=== PATIENT | female | born 1970 | race Caucasian/White ===

== ENCOUNTER → 2020-07-02 11:19 | Outpatient (BNVA) | payer MEDICARE, MEDICAID, SELFPAY | PROVIDERS: PCP Family Medicine; Visit Provider Orthopaedic Surgery | DX: M17.11 Unilateral primary osteoarthritis, right knee (principal) | CPT/HCPCS: 99212 ==

== ENCOUNTER → 2020-10-28 09:43 | Outpatient (BNVA) | payer MEDICARE, MEDICAID, SELFPAY | PROVIDERS: Visit Provider Orthopaedic Surgery | DX: Z01.812 Encounter for preprocedural laboratory examination (principal); Z01.810 Encounter for preprocedural cardiovascular examination; M17.11 Unilateral primary osteoarthritis, right knee ==

== ENCOUNTER → 2020-11-25 09:31 | Outpatient (BNVA) | payer MEDICARE, MEDICAID, SELFPAY | PROVIDERS: PCP Pediatrics; Visit Provider Physician Assistant | DX: M17.11 Unilateral primary osteoarthritis, right knee (principal) | CPT/HCPCS: 99212 ==

== ENCOUNTER 2020-11-30 06:49 | Day surgery (SDC) | payer MEDICARE, MEDICAID, SELFPAY ==
--- NOTE | 2020-10-28 10:59 | ECG_ITS ---
Test Reason : PREOP Blood Pressure : / mmHG Vent. Rate : 080 BPM Atrial Rate : 080 BPM P-R Int : 106 ms QRS Dur : 082 ms QT Int : 370 ms P-R-T Axes : 048 061 024 degrees QTc Int : 426 ms Sinus rhythm with short [place] Nonspecific ST abnormality Borderline ECG No previous ECGs available Referred By: Holden Banks Electronically Signed By:ERIKA RETANA
[2020-10-28 11:30] LABS: MANUAL DIFF FLAG NO
[2020-10-28 11:50] LABS: Basophils Percent Auto 0.4 % (0-2); Eosinophils Absolute Auto 0.2 X10*3/uL (0.0-0.4); Eosinophils Percent Auto 1.5 % (0-4); Hematocrit 45.2 % (37-47); Imm Gran Abs Auto 0.04 X10*3/uL (0.00-0.03); Imm Gran Pct Auto 0.4 % (0.0-0.4); Lymphocytes Absolute Auto 2.4 X10*3/uL (1.2-4.9); Lymphocytes Percent Auto 22.3 % (20-40); Mean Corpuscular HGB Conc 33.2 g/dl (31.0-35.0); Mean Corpuscular Hemoglobin 29.9 pg (27.0-33.0); Mean Corpuscular Volume 90.2 fL (80-98); Monocytes Absolute Auto 0.4 X10*3/uL (0.1-1.2); Monocytes Percent Auto 3.3 % (2-11); Neutrophils Absolute Auto 7.8 X10*3/uL (2.0-8.3); Neutrophils Percent Auto 72.1 % (45-73); Platelet Count 251 X10*3/uL (160-400); Red Blood Count 5.01 X10*6/uL (4.20-5.50); Red Cell Distribution Width 12.5 % (11.0-16.0); White Blood Count 10.7 X10*3/uL (4.8-10.8)
[2020-10-28 12:20] LABS: Anion Gap 13 (12-20); Blood Urea Nitrogen 9 mg/dL (9-16); Carbon Dioxide 26 mmol/L (22-29); Chloride 107 mmol/L (96-108); Estimated Glomerular Filt Rate > 60; Glucose Random 91 mg/dL (60-115); Potassium 4.2 mmol/L (3.3-5.1); Sodium 142 mmol/L (135-145)
[2020-11-26 11:53] VITALS: BP 144/70; PULSE 75; RESP 20; O2SAT 98; BMI 32.5
--- NOTE | 2020-11-26 12:24 | HO.ANESPROP2 ---
Documented by User: Paige Latifney 11/29/20 12:05 HPI - Anesthesia Eval Consult details Narrative: 50yo F for Right Knee Replacement Total PCP cleared @ [facility] Does not tolerate masks r/t anxiety Large doses of Tylenol at home (2 grams QID). PCP aware per patient. Will obtain LFTS preop. PMFSH Active Problems Active Problems: All Active Problems (Updated 11/26/20 @ 12:09 by Paris Pena) Primary osteoarthritis of right knee (Acute) Past Medical History Medical History Acid reflux Arthritis Asthma Compartment syndrome COVID-19 vaccine administered History of postoperative nausea and vomiting Hypertension Osteoarthritis Post traumatic stress disorder Family History Family History Father No problems noted. Mother No problems noted. Family history of problems with anesthesia: No Surgical History Surgical History H/O colonoscopy History of arthroscopy of right knee (~2018) History of lumpectomy of left breast Hx of section Hx of fasciotomy Hx of hysterectomy Hx of knee surgery Hx of ovarian cystectomy Hx of surgical procedure History of Problems with Anesthesia: No Social History Social History Are you a primary primary health care nurse to a significant other at home: No Do you presently have visiting nurse or other home services: Yes (has [employer]) Patient Tobacco Use Status: Former Tobacco user Quit Date: 11/21/20 Tobacco use type: Cigarette Cigarettes Per Day: 14 Years Smoked: 20 Smoked in Last 30 Days: Yes Patient Interested in Nicotine Replacement: No Use of substances other than those prescribed or required for medical reasons: No Have you been hit, kicked, punched, or otherwise hurt by someone within the past year? If so, by whom?: No Are you DNR?: No Advance Directives: No Advance Directives Information Provided: No Advance Directives on File: No Recently lost weight without trying: No Eating poorly because of decreased appetite: No Nutrition Risks: No Nutritional Risk Patient : No FDLMP: N/A : No Poor oral hygiene: Yes (upper & lower partials) Narrative Narrative: No recent illness. >4 mets with walking/stairs Meds Allergies Allergy/AdvReac Type Severity Reaction Status Date / Time aspirin [ASPIRIN] Allergy Severe ASTHMATIC Verified 11/25/20 09:44 cefuroxime [From Ceftin] Allergy Intermediate red rash Verified 11/26/20 12:17 ibuprofen [From MOTRIN] Allergy Intermediate RASH Verified 11/25/20 09:44 Home Medications Medication Instructions Recorded Confirmed Last Taken Type amlodipine 10 mg tablet 10 mg PO DAILY 07/02/20 11/26/20 11/30/20 History lisinopril 10 mg tablet 10 mg PO BEDTIME 07/02/20 11/26/20 Unknown History omeprazole 20 mg capsule,delayed 20 mg PO BID 07/02/20 11/26/20 11/30/20 History release venlafaxine 75 mg capsule,extended 225 mg PO DAILY 07/02/20 11/26/20 11/30/20 History release 24 hr acetaminophen [Tylenol Extra 2,000 mg PO Q4H 11/26/20 11/26/20 Unknown History Strength] albuterol sulfate [Ventolin HFA] 2 puff INHALATION Q4-6H PRN 11/26/20 11/26/20 Unknown History multivitamin 1 tab PO DAILY 11/26/20 11/26/20 Unknown History Exam Exam Date and Time: November 26, 2020 1224 Height,Weight and Vital Signs: Height 5 ft 2 in Weight 80.739 kg Last Vital Signs Pulse 75 11/26/20 11:53 Resp 20 11/26/20 11:53 BP 144/70 H 11/26/20 11:53 Pulse Ox 98 11/26/20 11:53 Pertinent Lab Results Pertinent Lab Results: Laboratory Tests 10/28/20 10/28/20 11:05 11:05 WBC 10.7 RBC 5.01 Hgb 15.0 Hct 45.2 MCV 90.2 MCH 29.9 MCHC 33.2 RDW 12.5 Plt Count 251 MPV 11.0 Immature Gran % (Auto) 0.4 Neut % (Auto) 72.1 Lymph % (Auto) 22.3 [place] % (Auto) 3.3 Eos % (Auto) 1.5 Baso % (Auto) 0.4 Lymph # (Auto) 2.4 [place] # (Auto) 0.4 Eos # (Auto) 0.2 Baso # (Auto) 0.0 Abs Immat Gran (auto) 0.04 H Absolute Neuts (auto) 7.8 Absolute Nucleated RBC 0.000 Nucleated RBC % (auto) 0.0 Sodium 142 Potassium 4.2 Chloride 107 Carbon Dioxide 26 Anion Gap 13 BUN 9 Creatinine 0.76 Estim Creat Clear Calc TNP Estimated GFR > 60 Random Glucose 91 Calcium 10.0 Narrative Narrative: EKG 10/2020 Vent. Rate : 080 BPM Atrial Rate : 080 BPM P-R Int : 106 ms QRS Dur : 082 ms QT Int : 370 ms P-R-T Axes : 048 061 024 degrees QTc Int : 426 ms Sinus rhythm with short [place] Nonspecific ST abnormality Borderline ECG No previous ECGs available Airway Mallampati Class: I TM Dist: >3cm Neck ROM: Full Denture: Upper and Lower Heart: RRR Lungs: CTAB Assessment and Plan Assessment Anesthesia Assessment: Anesthesia Plan Discussed, Smoking Cess. Discussed and PAT Visit Documented by User: Patsy Wetzel 11/30/20 08:36 PMFSH Past Medical History Medical History Acid reflux Arthritis Asthma Compartment syndrome COVID-19 vaccine administered History of postoperative nausea and vomiting Hypertension Osteoarthritis Post traumatic stress disorder Family History Family History Father No problems noted. Mother No problems noted. Surgical History Surgical History H/O colonoscopy History of arthroscopy of right knee (~2018) History of lumpectomy of left breast Hx of section Hx of fasciotomy Hx of hysterectomy Hx of knee surgery Hx of ovarian cystectomy Hx of surgical procedure Social History Social History Are you a primary primary health care nurse to a significant other at home: No Do you presently have visiting nurse or other home services: Yes (has [employer] HEL[employer]) Patient Tobacco Use Status: Former Tobacco user Quit Date: 11/21/20 Tobacco use type: Cigarette Cigarettes Per Day: 14 Years Smoked: 20 Smoked in Last 30 Days: Yes Patient Interested in Nicotine Replacement: No Use of substances other than those prescribed or required for medical reasons: No Have you been hit, kicked, punched, or otherwise hurt by someone within the past year? If so, by whom?: No Are you DNR?: No Advance Directives: No Advance Directives Information Provided: No Advance Directives on File: No Recently lost weight without trying: No Eating poorly because of decreased appetite: No Nutrition Risks: No Nutritional Risk Patient : No FDLMP: N/A : No Poor oral hygiene: Yes (upper & lower partials) Meds Allergies Allergy/AdvReac Type Severity Reaction Status Date / Time aspirin [ASPIRIN] Allergy Severe ASTHMATIC Verified 11/25/20 09:44 cefuroxime [From Ceftin] Allergy Intermediate red rash Verified 11/26/20 12:17 ibuprofen [From MOTRIN] Allergy Intermediate RASH Verified 11/25/20 09:44 Home Medications Medication Instructions Recorded Confirmed Last Taken Type amlodipine 10 mg tablet 10 mg PO DAILY 07/02/20 11/26/20 11/30/20 History lisinopril 10 mg tablet 10 mg PO BEDTIME 07/02/20 11/26/20 Unknown History omeprazole 20 mg capsule,delayed 20 mg PO BID 07/02/20 11/26/20 11/30/20 History release venlafaxine 75 mg capsule,extended 225 mg PO DAILY 07/02/20 11/26/20 11/30/20 History release 24 hr acetaminophen [Tylenol Extra 2,000 mg PO Q4H 11/26/20 11/26/20 Unknown History Strength] albuterol sulfate [Ventolin HFA] 2 puff INHALATION Q4-6H PRN 11/26/20 11/26/20 Unknown History multivitamin 1 tab PO DAILY 11/26/20 11/26/20 Unknown History Exam Height,Weight and Vital Signs: Vital Signs Temp Pulse Resp BP Pulse Ox 11/30/20 06:47 96.8 F 79 16 121/67 100 Pertinent Lab Results Pertinent Lab Results: Laboratory Results - last 24 hr 11/30/20 06:15 COVID-19 (ASUNCION) Negative COVID-19 Clin Com See Note Airway Mallampati Class: II TM Dist: >3cm Neck ROM: Full Denture: Upper Heart: RRR Lungs: CTAB Assessment and Plan Assessment Anesthesia Assessment: Anesthesia Plan Discussed and Chart Reviewed Final Anesthetic Review NPO: Yes ASA Class: II Final Preanesthetic Review: No Changes in Pt Med Stat, Meds/Allgs Chart Reviewed, Consent Obtained/Reviewed and Anes Risks/Benef Reviewed Patient Risk: Intermediate Procedure Risk: Intermediate Anesthetic Plan Anesthetic Plan: Spinal Disposition: Inp. Admit - Standard Bed
[2020-11-26 15:02] LABS: Alanine Aminotransferase 15 U/L (0-31); Albumin Level 4.4 g/dL (3.5-5.0); Alkaline Phosphatase 120 U/L (39-117); Aspartate Amino Transferase 15 U/L (5-31); Bilirubin Direct 0.2 mg/dL (0.0-0.5); Bilirubin Total 0.6 mg/dL (0.0-1.0); Total Protein 6.9 g/dL (6.5-8.0)
[2020-11-26 15:03] LABS: MRSA Nasal PCR NEGATIVE (Negative); SA Nasal PCR NEGATIVE (Negative)
[2020-11-30] VITALS (13 sets, daily range): BP systolic 98–137; BP diastolic 49–79; PULSE 67–88; RESP 16–20; TEMP 36–36.8; O2SAT 94–100
--- NOTE | ~2020-11-30 | XR_ITS ---
EXAMINATION: XR KNEE, RIGHT CLINICAL INFORMATION: Right TKA COMPARISON: None TECHNIQUE: Four views of the right knee. FINDINGS: The total right knee prosthesis with prosthetic components in satisfactory alignment. There is solitary needle in AP direction in proximal tibia. There are immediate postop changes with surgical tasia along the anterior right knee. Immediate soft tissue postoperative changes seen XR/XR knee RT 2V IMPRESSION: Status post total right knee arthroplasty with prosthetic components in satisfactory alignment. Immediate postop changes are visualized.
[2020-11-30] MEDS: Gabapentin 600 MG TABLET PO (06:54)
[2020-11-30] MEDS: Scopolamine 1.5 MG PATCH.TD.3 TRANSDERMA (06:54)
[2020-11-30 06:58] LABS: COVID-19 Test Negative (Negative)
[2020-11-30] MEDS: Lactated Ringers 1,000 ML 100 ML IVCONT ×2 (07:07→07:12)
--- NOTE | 2020-11-30 07:37 | MHC.SHP ---
Pre-Procedural Eval Section A The patient is an INPATIENT: No Changes since office visit: Yes Patient answered all questions; No Cold of Flu in the past 2 weeks, No New Medical Problems and No Changes in Medication The History & Physical has been completed within 30 days and I have reviewed it.: Yes Section B Chief Complaint: s/p r tka Allergies: Allergies Allergy/AdvReac Type Severity Reaction Status Date / Time aspirin [ASPIRIN] Allergy Severe ASTHMATIC Verified 11/25/20 09:44 cefuroxime [From Ceftin] Allergy Intermediate red rash Verified 11/26/20 12:17 ibuprofen [From MOTRIN] Allergy Intermediate RASH Verified 11/25/20 09:44 Plan I have reviewed the history and physical and performed a pertinent physical examination on my patient. No changes have occurred unless specified.
--- NOTE | 2020-11-30 09:40 | P.BOP_ITS ---
Brief Operative Note Date of Service: 11/30/20 Pre-op diagnosis: right knee OA Post-op diagnosis: same Procedure: Right TKA Implants: Styker triathalon press fit 07/27/10 Surgeon: Holden Banks MD Anesthesia: GETA Was an High School Mathematics Teacher used for this Procedure?: Yes High School Mathematics Teacher: Anisa Osullivan Estimated blood loss (mL): 100 IV fluids (mL): 1,000 Pathology: other Condition: stable Disposition: PACU
--- NOTE | 2020-11-30 09:42 | W.PM.OPN ---
Operative Note Operative Note Date of Service: 11/30/20 Narrative: Pre-op diagnosis: right knee OA Post-op diagnosis: same Procedure: Right TKA Implants: [employer]ker triathalon press fit 07/27/10/ Surgeon: Holden Banks MD Anesthesia: GETA Was an Bilingual Recruiter used for this Procedure?: Yes Bilingual Recruiter: Anisa Osullivan Estimated blood loss (mL): 100 IV fluids (mL): 1,000 Pathology: other Condition: stable Disposition: PACU Procedure in detail: Patient was brought to the operating room and prepped and draped in standard sterile fashion. A time-out was called to identify proper site proper procedure proper surgeon IV antibiotics were administered. 1 g of IV tranexamic acid was also administered. I began by making a modified midline incision over her previous tibial tubercle transfer incision and proximally up to midline. Sharp dissection was taken down to the retinaculum and I performed a medial parapatellar arthrotomy. The patella was translated laterally and the knee was flexed up. There was eburnation of the patella and scattered G 4 changes through the medial femur and tibia. I performed a small medial peel and resected the infrapatellar fat pad. Caro's line was then used to drill my intramedullary femoral guide and my distal femur cut was made in 5 degrees of valgus. I then measured a #2 femur and placed my cutting guide and made my anterior posterior and chamfer cuts protecting the soft tissues at all times. Once I was satisfied with my cut I turned my attention to the tibia. In line with the tibial crest and with a 3 degree posterior slope I made my distal tibial cut protecting the PCL the posterior soft tissues at all times. An extension block was used to confirm appropriate amount of bony resection. I then sized the tibia and once I was happy that there was good tibial coverage I placed my trial and with the trial femur in place took the knee through range of motion. I was happy with the extension and flexion as well as the stability at 0, 30 and 90 degrees. I then turned my attention to the patella where I removed 1 cm from the undersurface of the patella and then trialed a 29a patellar button. Again the knee was taken through range of motion I was satisfied with the tracking. I then returned to the tibia and removed the prior tibial tubercle transfer screw without difficulty. I then returned to the femur and drilled my femoral lug holes and prepared the tibia. Femoral bone plug was then placed and the knee was irrigated copiously. I then press fit the patella, tibia and femur in standard fashion. I trialed different inserts until I was satisfied with an 11 . I then placed the final insert and performed a 3 minute iodine soak with local TXA. The knee was then closed with a running Quill suture, a 3 0 Vicryl and tasia on the skin. Patient was then placed in sterile dressing and brought to recovery room in stable condition there were no known complications.
[2020-11-30] MEDS: ondansetron HCL 4 MG/2 ML VIAL IVPUSH (09:55)
[2020-11-30] MEDS: oxyCODONE HCl Immed Release 5 MG TABLET PO ×2 (12:33→21:47)
[2020-11-30] MEDS: Dextrose 5 % and 0.45 % NaCl 1,000 ML 80 ML IVCONT (12:35)
[2020-11-30] MEDS: HYDROmorphone HCl 0.5 MG/0.5 ML SYRINGE 0.25 MG IVPUSH ×3 (13:05→19:33)
[2020-11-30] MEDS: ceFAZolin Sodium/Dextrose,Iso 2 GM/50 ML PIGGYBACK IV (13:06)
--- NOTE | 2020-11-30 14:17 | MHC.CM.PN ---
NURSE SCHOOL BUS DRIVER NTOE ELECTRONIC MEICAL RECORD REVIEWED ALONG WITH CASE DISCUSSED WITH STAFF NURSE AND PHYSICAL THEAPRIST, PATIENT LIVES ALONE SHE REPORTED THAT EHAS DIESEL TRACTOR ENGINE MECHANIC SERVICES THROUGH DIESEL TRACTOR ENGINE MECHANIC [facility] 29 DAYTIME HOURS WEEKLY (PESRSONAL CARE , LAUNDRY AND GROCERY SHOPPING) she is independent in her dressing , cooking and ambulates with a walker , she informed me that the orthopedic surgical ofice was suppose to send a script for a commode to [facility] but they have not received it as yet, i infomred her i woul text message orthopedic surgcial pa about this, explained about the importance victor hugo having a health care proxy , she said she thought she had one but could not find one at home , i suggested since she just had surgeyr we can complete one tomorrow . we dicussed the the various vna services in the area and [facility] . discharge plan 1. home with new ref erral to the [facility] nsg tostart for a few visists for sc [employer] reinforcement teaching and hgome physical theapry to start day after d/c 2. 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 self resumption of her mental health counseling with [facility] in [place] transportation family or friends,
[2020-11-30] MEDS: Acetaminophen 325 MG TABLET 650 MG PO ×2 (15:30→21:48)
--- NOTE | 2020-11-30 17:07 | PM.IMCN ---
History of Present Illness Data of Consult Service Date: 11/30/20 <Andreea Bright NP - Last Filed: 11/30/20 17:16> Requesting physician: Holden Banks <Andreea Bright NP - Last Filed: 11/30/20 17:16> Primary Care Provider: Amrita Trammell MD <Andreea Bright NP - Last Filed: 11/30/20 17:16> HPI Reason for consult: medical management <Andreea Bright NP - Last Filed: 11/30/20 17:16> 50-year-old woman admitted by Orthopedic surgery and is status post right total hip surgery was unremarkable. Patient does have a moderate amount pain. She has been able to eat and drink without any nausea vomiting or diarrhea. We resting in bed she has no acute medical complaints at this time. <Andreea Bright NP - Last Filed: 11/30/20 17:16> Review of Systems Review of Systems: Denies any recent fever chills or decrease in appetite respiratory denies any shortness of breath coverage production cardiovascular is adjustment of any PND or edema gastrointestinal denies any dysphagia abdominal pain nausea vomiting or diarrhea genitourinary denies any dysuria frequency or hematuria musculoskeletal See HPI neuropsych denies any weakness or seizures all other systems reviewed are negative <Andreea Bright NP - Last Filed: 11/30/20 17:16> [facility] Medical History: Medical History Acid reflux Arthritis Asthma Compartment syndrome COVID-19 vaccine administered History of postoperative nausea and vomiting Hypertension Osteoarthritis Post traumatic stress disorder <Andreea Bright NP - Last Filed: 11/30/20 17:16> Family History: Family History Father No problems noted. Mother No problems noted. <Andreea Bright NP - Last Filed: 11/30/20 17:16> Surgical History: Surgical History H/O colonoscopy History of arthroscopy of right knee (~2018) History of lumpectomy of left breast Hx of section Hx of fasciotomy Hx of hysterectomy Hx of knee surgery Hx of ovarian cystectomy Hx of surgical procedure <Andreea Bright NP - Last Filed: 11/30/20 17:16> Social History: Social History Household Members: Family Housing: House Are you a primary date night caregiver to a significant other at home: No Do you presently have visiting nurse or other home services: No Patient Tobacco Use Status: Former Tobacco user Quit Date: 11/21/20 Tobacco use type: Cigarette Cigarettes Per Day: 14 Years Smoked: 20 <Andreea Bright NP - Last Filed: 11/30/20 17:16> Meds Allergies/Adverse reactions: Allergies Allergy/AdvReac Type Severity Reaction Status Date / Time aspirin [ASPIRIN] Allergy Severe ASTHMATIC Verified 11/30/20 16:29 cefuroxime [From Ceftin] Allergy Intermediate red rash Verified 11/30/20 16:29 ibuprofen [From MOTRIN] Allergy Intermediate RASH Verified 11/30/20 16:29 <Andreea Bright NP - Last Filed: 11/30/20 17:16> Active Medications: Current Medications Generic Name Dose Route Start Last Admin Trade Name Freq PRN Reason Stop Dose Admin Acetaminophen 650 mg 11/30/20 11:08 11/30/20 15:30 Acetaminophen 325 Mg Tablet PO 650 mg Q6H PRN Administration Pain, Mild (Pain Scale 1-3) Docusate Sodium 100 mg 11/30/20 21:00 Docusate Sodium 100 Mg Capsule PO BID FARA Hydromorphone HCl 0.25 mg 11/30/20 11:08 11/30/20 13:05 Hydromorphone Hcl 0.5 Mg/0.5 Ml Syringe IVPUSH 0.25 mg Q4H PRN Administration Pain, Severe (Pain Scale 7-10) Dextrose/Sodium Chloride 1,000 mls @ 80 mls/hr 11/30/20 12:00 11/30/20 12:35 D51/2ns IVCONT 80 mls/hr .[id number] FARA Administration Naloxone HCl 0.2 mg 11/30/20 11:08 Naloxone Hcl 0.4 Mg/Ml Vial IVPUSH Q2M PRN Excessive sedation or RR < 8 Ondansetron HCl 4 mg 11/30/20 11:08 Ondansetron Hcl 4 Mg/2 Ml Vial IVPUSH Q8H PRN Nausea and Vomiting Oxycodone HCl 5 mg 11/30/20 11:08 11/30/20 12:33 Oxycodone Hcl Immed Release 5 Mg Tablet PO 5 mg Q4H PRN Administration Pain, Moderate (Pain Scale 4-6 Oxycodone HCl 10 mg 11/30/20 21:00 Oxycodone Hcl Er 10 Mg Tab.Er.12h PO BID [facility] Senna 17.2 mg 11/30/20 11:08 Sennosides 8.6 Mg Tablet PO BEDTIME PRN Constipation Sodium Chloride 3 ml 11/30/20 16:00 11/30/20 16:03 0.9 % Sodium Chloride Flush 3 Ml Syringe IVFLUSH Not Given QSHIFT FARA <Andreea Bright NP - Last Filed: 11/30/20 17:16> Home medications: Home Medications Medication Instructions Recorded Confirmed Last Taken Type amlodipine 10 mg tablet 10 mg PO DAILY 07/02/20 11/26/20 11/30/20 History lisinopril 10 mg tablet 10 mg PO BEDTIME 07/02/20 11/26/20 Unknown History omeprazole 20 mg capsule,delayed 20 mg PO BID 07/02/20 11/26/20 11/30/20 History release venlafaxine 75 mg capsule,extended 225 mg PO DAILY 07/02/20 11/26/20 11/30/20 History release 24 hr acetaminophen [Tylenol Extra 2,000 mg PO Q4H 11/26/20 11/26/20 Unknown History Strength] albuterol sulfate [Ventolin HFA] 2 puff INHALATION Q4-6H PRN 11/26/20 11/26/20 Unknown History multivitamin 1 tab PO DAILY 11/26/20 11/26/20 Unknown History <Andreea Bright NP - Last Filed: 11/30/20 17:16> Physical Exam Vital Signs and Narrative: Vital Signs: Last Vital Signs Temp 97.6 F 11/30/20 11:48 Pulse 68 11/30/20 13:32 Resp 17 11/30/20 11:48 BP 137/79 11/30/20 13:32 Pulse Ox 100 11/30/20 13:32 Body Mass Index 32.5 <Andreea Bright NP - Last Filed: 11/30/20 17:16> Appearing in no acute distress head is normocephalic atraumatic eyes pupils are PERRLA sclera is anicteric mouth throat mucous membranes are intact and moist neck is supple no lymphadenopathy, no JVD noted lung sounds are clear to auscultation heart regular rate rhythm, clear S1, S2 positive bowel sounds, abdomen is soft, nontender neuro patient is alert x3, no focal deficit MSK surgical dressing intact <Andreea Bright NP - Last Filed: 11/30/20 17:16> Results Labs CBC and Chem 7: : 12/01/20 05:54 12/01/20 05:54 <Andreea Bright NP - Last Filed: 11/30/20 17:16> Labs: Laboratory Results - last 24 hr 11/30/20 06:15 COVID-19 (ASUNCION) Negative COVID-19 Clin Com See Note <Andreea Bright NP - Last Filed: 11/30/20 17:16> Imaging Radiologist's Impressions: Impressions Knee X-Ray 11/30/20 10:32 IMPRESSION: Status post total right knee arthroplasty with prosthetic components in satisfactory alignment. Immediate postop changes are visualized. <Andreea Bright NP - Last Filed: 11/30/20 17:16> Assessment and Plan (1) Primary osteoarthritis of right knee: Status: Acute <Andreea Bright NP - Last Filed: 11/30/20 17:16> 50-year-old woman status post right total knee arthroplasty. Right total knee arthroplasty. -management as per surgical team - pain management Hypertension. Stable blood pressure Pressure -Continue lisinopril and amlodipine 6 and-monitor for postoperative hypotension GERD -continue PPI Mental health -continue home medications DVT prophylaxis as per surgical team Full code Attending: Dr. Guan <Andreea Bright NP - Last Filed: 11/30/20 17:16>
[2020-11-30] MEDS: Omeprazole 20 MG CAPSULE.DR PO (21:07)
[2020-11-30] MEDS: oxyCODONE HCl ER 10 MG TAB.ER.12H PO (21:07)
[2020-11-30] MEDS: Docusate Sodium 100 MG CAPSULE PO (21:07)
[2020-11-30] MEDS: lisinopriL 10 MG TABLET PO (21:08)
[2020-11-30] MEDS: 0.9 % Sodium Chloride Flush 3 ML SYRINGE IVFLUSH (21:09)
[2020-12-01] VITALS (8 sets, daily range): BP systolic 90–124; BP diastolic 46–73; PULSE 67–72; RESP 14–18; TEMP 36.1–36.7; O2SAT 93–98
[2020-12-01] MEDS: HYDROmorphone HCl 0.5 MG/0.5 ML SYRINGE 0.25 MG IVPUSH ×5 (00:50→18:36)
[2020-12-01] MEDS: Dextrose 5 % and 0.45 % NaCl 1,000 ML 80 ML IVCONT (00:51)
[2020-12-01 06:21] LABS: MANUAL DIFF FLAG NO
[2020-12-01 07:06] LABS: Anion Gap 9 (12-20); Basophils Percent Auto 0.1 % (0-2); Blood Urea Nitrogen 9 mg/dL (9-16); Calcium 8.5 mg/dL (8.4-10.2); Carbon Dioxide 27 mmol/L (22-29); Chloride 110 mmol/L (96-108); Eosinophils Percent Auto 0.1 % (0-4); Estimated Glomerular Filt Rate > 60; Glucose Fasting 94 mg/dL (60-99); Hematocrit 33.1 % (37-47); Imm Gran Abs Auto 0.08 X10*3/uL (0.00-0.03); Imm Gran Pct Auto 0.6 % (0.0-0.4); Lymphocytes Absolute Auto 2.4 X10*3/uL (1.2-4.9); Lymphocytes Percent Auto 17.3 % (20-40); Mean Corpuscular HGB Conc 33.2 g/dl (31.0-35.0); Mean Corpuscular Hemoglobin 29.8 pg (27.0-33.0); Mean Corpuscular Volume 89.7 fL (80-98); Mean Platelet Volume 11.2 fL (9.4-12.3); Monocytes Absolute Auto 0.7 X10*3/uL (0.1-1.2); Monocytes Percent Auto 5.2 % (2-11); Neutrophils Absolute Auto 10.5 X10*3/uL (2.0-8.3); Neutrophils Percent Auto 76.7 % (45-73); Platelet Count 199 X10*3/uL (160-400); Potassium 4.2 mmol/L (3.3-5.1); Red Blood Count 3.69 X10*6/uL (4.20-5.50); Red Cell Distribution Width 12.5 % (11.0-16.0); Sodium 142 mmol/L (135-145); White Blood Count 13.8 X10*3/uL (4.8-10.8)
--- NOTE | 2020-12-01 07:35 | PM.PNORT ---
Subjective Subjective Date of Service: 12/01/20 Interval history: POD1 s/p RTKA with Dr. Banks. Pain is well managed. Patient is resting comfortably in bed. No overnight events. No additional complaints. Physical Exam Vital Signs: Vital Signs: Last Vital Signs Temp 97.0 F 12/01/20 07:29 Pulse 72 12/01/20 07:29 Resp 17 12/01/20 07:29 BP 109/64 12/01/20 07:29 Pulse Ox 98 12/01/20 07:29 Body Mass Index 32.5 Const: General: cooperative, healthy appearing and no acute distress Resp: Effort & Inspection: normal respiratory effort and able to speak in complete sentences Cardio: Rate: regular rate Peripheral pulses: Peripheral pulses 2+ throughout GI: Palpation (GI): Soft to palpation Skin: Lesions: no lesions Rashes: no rashes Extrem: Other: Right knee aquacel is clean, dry, and intact. Patient is able to plantarflex and dorsiflex. Sensation intact. Pedal pulse intact. Progress Note: A&P Assessment and plan (1) Status post total knee replacement, right: Status: Acute Assessment and Plan: Continue pain mgmnt Begin Lovenox for dvt ppx begin PT for RTKA Dispo planning-Pending PT eval, pain mgmnt Fall Risk Details Current Medications: Current Medications Generic Name Dose Route Start Last Admin Trade Name Freq PRN Reason Stop Dose Admin Acetaminophen 650 mg 11/30/20 11:08 11/30/20 21:48 Acetaminophen 325 Mg Tablet PO 650 mg Q6H PRN Administration Pain, Mild (Pain Scale 1-3) Albuterol Sulfate 2 puff 11/30/20 17:20 Albuterol Sulfate 90 Mcg 8 Gm Inhaler INHALE Q4H PRN Shortness Of Breath Amlodipine Besylate 10 mg 12/01/20 09:00 Amlodipine Besylate 10 Mg Tablet PO DAILY [facility]ARA Protocol Docusate Sodium 100 mg 11/30/20 21:00 11/30/20 21:07 Docusate Sodium 100 Mg Capsule PO 100 mg BID FARA Administration Enoxaparin Sodium 40 mg 12/01/20 11:30 Enoxaparin Sodium 40 Mg/0.4 Ml Syringe SUBCUT Q24H [facility]ARA Hydromorphone HCl 0.25 mg 11/30/20 17:21 12/01/20 06:19 Hydromorphone Hcl 0.5 Mg/0.5 Ml Syringe IVPUSH 0.25 mg Q3H PRN Administration Pain, Severe (Pain Scale 7-10) Dextrose/Sodium Chloride 1,000 mls @ 80 mls/hr 11/30/20 12:00 12/01/20 00:51 D51/2ns IVCONT 80 mls/hr .[id number] FARA Administration Lisinopril 10 mg 11/30/20 21:00 11/30/20 21:08 Lisinopril 10 Mg Tablet PO 10 mg BEDTIME FARA Administration Protocol Multivitamins/Vitamin C 1 tab 12/01/20 09:00 Multivitamin Tablet PO DAILY FARA Naloxone HCl 0.2 mg 11/30/20 11:08 Naloxone Hcl 0.4 Mg/Ml Vial IVPUSH Q2M PRN Excessive sedation or RR < 8 Omeprazole 20 mg 11/30/20 21:00 11/30/20 21:07 Omeprazole 20 Mg Capsule.Dr PO 20 mg BID FARA Administration Ondansetron HCl 4 mg 11/30/20 11:08 Ondansetron Hcl 4 Mg/2 Ml Vial IVPUSH Q8H PRN Nausea and Vomiting Oxycodone HCl 5 mg 11/30/20 11:08 11/30/20 21:47 Oxycodone Hcl Immed Release 5 Mg Tablet PO 5 mg Q4H PRN Administration Pain, Moderate (Pain Scale 4-6 Oxycodone HCl 10 mg 11/30/20 21:00 11/30/20 21:07 Oxycodone Hcl Er 10 Mg Tab.Er.12h PO 10 mg BID FARA Administration Senna 17.2 mg 11/30/20 11:08 Sennosides 8.6 Mg Tablet PO BEDTIME PRN Constipation Sodium Chloride 3 ml 11/30/20 16:00 11/30/20 21:09 0.9 % Sodium Chloride Flush 3 Ml Syringe IVFLUSH 3 ml QSHIFT [facility] Administration Venlafaxine HCl 225 mg 12/01/20 09:00 Venlafaxine Hcl Er 75 Mg Cap.Er.24h PO DAILY [facility] Time Spent With Patient Time: Total time spent is greater than 50% in coordination of care (as documented) at patient's floor/unit and/or counseling patient: Time with patient: less than 15 minutes Procedures Date of Service Date of Service: 12/01/20
[2020-12-01] MEDS: Docusate Sodium 100 MG CAPSULE PO ×2 (08:13→21:33)
[2020-12-01] MEDS: Venlafaxine HCl ER 75 MG CAP.ER.24H 225 MG PO (08:14)
[2020-12-01] MEDS: oxyCODONE HCl Immed Release 5 MG TABLET PO ×3 (08:14→19:40)
[2020-12-01] MEDS: oxyCODONE HCl ER 10 MG TAB.ER.12H PO ×2 (08:14→21:33)
[2020-12-01] MEDS: Omeprazole 20 MG CAPSULE.DR PO ×2 (08:14→21:33)
[2020-12-01] MEDS: Multivitamin TABLET 1 TAB PO (08:14)
[2020-12-01] MEDS: 0.9 % Sodium Chloride Flush 3 ML SYRINGE IVFLUSH ×3 (08:15→21:34)
[2020-12-01] MEDS: Enoxaparin Sodium 40 MG/0.4 ML SYRINGE SUBCUT (10:02)
--- NOTE | 2020-12-01 10:28 | HO.PM.IMPN ---
Subjective Subjective Date of Service: 12/01/20 Interval History: Pain good control, denies lightheadedness dizziness denies coughing denies urinary symptoms of urgency or burning but does have frequency likely due to IV fluid hematocrit dropped but stable, noted to have elevated WBC count ROS General no headache, no dizziness no fever chills. CVS no chest pain, no palpitation. Respiratory no cough no sob. Gastrointestinal no nausea no vomiting, no abdominal pain Physical Exam Vital Signs: Vital Signs: Last Vital Signs Temp 97.0 F 12/01/20 07:29 Pulse 72 12/01/20 09:12 Resp 17 12/01/20 07:29 BP 109/64 12/01/20 09:12 Pulse Ox 98 12/01/20 09:12 Body Mass Index 32.5 General patient resting comfortably in no acute distress. Neck is supple no JVD. CVS regular rate rhythm, Respiratory lungs clear to auscultation, no respiratory distress, no wheeze, no rhonchi. Gastrointestinal abdomen soft, nontender, bowel sounds audible, no guarding , no rigidity. Extremities no edema.Rt Knee dressing in place Neuro nonfocal , speech clear. Skin no rash Objective Data Current Medications Generic Name Dose Route Start Last Admin Trade Name Freq PRN Reason Stop Dose Admin Acetaminophen 650 mg 11/30/20 11:08 11/30/20 21:48 Acetaminophen 325 Mg Tablet PO 650 mg Q6H PRN Administration Pain, Mild (Pain Scale 1-3) Albuterol Sulfate 2 puff 11/30/20 17:20 Albuterol Sulfate 90 Mcg 8 Gm Inhaler INHALE Q4H PRN Shortness Of Breath Docusate Sodium 100 mg 11/30/20 21:00 12/01/20 08:13 Docusate Sodium 100 Mg Capsule PO 100 mg BID [facility]ARA Administration Enoxaparin Sodium 40 mg 12/01/20 11:30 12/01/20 10:02 Enoxaparin Sodium 40 Mg/0.4 Ml Syringe SUBCUT 40 mg Q24H [facility] Administration Hydromorphone HCl 0.25 mg 11/30/20 17:21 12/01/20 10:01 Hydromorphone Hcl 0.5 Mg/0.5 Ml Syringe IVPUSH 0.25 mg Q3H PRN Administration Pain, Severe (Pain Scale 7-10) Lisinopril 10 mg 11/30/20 21:00 11/30/20 21:08 Lisinopril 10 Mg Tablet PO 10 mg BEDTIME [facility] Administration Protocol Multivitamins/Vitamin C 1 tab 12/01/20 09:00 12/01/20 08:14 Multivitamin Tablet PO 1 tab DAILY [facility] Administration Naloxone HCl 0.2 mg 11/30/20 11:08 Naloxone Hcl 0.4 Mg/Ml Vial IVPUSH Q2M PRN Excessive sedation or RR < 8 Omeprazole 20 mg 11/30/20 21:00 12/01/20 08:14 Omeprazole 20 Mg Capsule.Dr PO 20 mg BID [facility]ARA Administration Ondansetron HCl 4 mg 11/30/20 11:08 Ondansetron Hcl 4 Mg/2 Ml Vial IVPUSH Q8H PRN Nausea and Vomiting Oxycodone HCl 5 mg 11/30/20 11:08 12/01/20 08:14 Oxycodone Hcl Immed Release 5 Mg Tablet PO 5 mg Q4H PRN Administration Pain, Moderate (Pain Scale 4-6 Oxycodone HCl 10 mg 11/30/20 21:00 12/01/20 08:14 Oxycodone Hcl Er 10 Mg Tab.Er.12h PO 10 mg BID [facility]ARA Administration Senna 17.2 mg 11/30/20 11:08 Sennosides 8.6 Mg Tablet PO BEDTIME PRN Constipation Sodium Chloride 3 ml 11/30/20 16:00 12/01/20 08:15 0.9 % Sodium Chloride Flush 3 Ml Syringe IVFLUSH 3 ml QSHIFT [facility] Administration Venlafaxine HCl 225 mg 12/01/20 09:00 12/01/20 08:14 Venlafaxine Hcl Er 75 Mg Cap.Er.24h PO 225 mg DAILY [facility] Administration Labs CBC & Chem 7: 12/01/20 05:54 12/01/20 05:54 Assessment and Plan (1) Hypertension: Status: Acute (2) Leukocytosis: Status: Acute (3) Status post total knee replacement, right: Status: Acute (4) Primary osteoarthritis of right knee: Status: Acute Assessment and Plan: 50-year-old woman status post right total knee arthroplasty. Right total knee arthroplasty pod #1. Good pain control, hematocrit dropped but stable patient asymptomatic, will DC IV fluids no symptoms of lightheadedness or dizziness tolerating by mouth well Recommend high-fiber diet, encourage incentive spirometer Further management as per surgical team Leukocytosis Patient asymptomatic no cough, no sputum production no urinary symptoms, likely reactive follow CBC. Hypertension. Low blood pressure this a.m. will discontinue amlodipine, follow blood pressure closely receive lisinopril at night time if BP remains low will DC lisinopril GERD continue PPI Mental health Behavioral issues,continue home medications DVT prophylaxis as per surgical team Full code
[2020-12-01] MEDS: Acetaminophen 325 MG TABLET 650 MG PO (12:19)
--- NOTE | 2020-12-01 14:23 | HO.POSTANES ---
Post Anesthesia Evaluation Post Anesthesia Evaluation Vital Signs: Vital Signs Temp Pulse Resp BP Pulse Ox 12/01/20 13:36 70 121/65 97 12/01/20 11:34 97.0 F 70 15 121/65 97 12/01/20 09:12 72 109/64 98 12/01/20 07:29 97.0 F 72 17 109/64 98 12/01/20 04:00 98.0 F 68 15 90/46 L 96 Anesthesia: Spinal Mental Status: Awake Pain Control: Satisfactory Nausea/Vomiting: None Hydration: Adequate Anesthesia-Related Issues: No Anes. Related Issues
[2020-12-01] MEDS: lisinopriL 10 MG TABLET PO (21:34)
[2020-12-02] MEDS: HYDROmorphone HCl 0.5 MG/0.5 ML SYRINGE 0.25 MG IVPUSH ×2 (00:16→08:25)
[2020-12-02 03:34] VITALS: BP 106/55; PULSE 77; RESP 16; TEMP 36.3; O2SAT 94
[2020-12-02] MEDS: oxyCODONE HCl Immed Release 5 MG TABLET PO ×2 (05:42→10:13)
[2020-12-02 06:32] LABS: MANUAL DIFF FLAG NO
[2020-12-02 06:51] LABS: Basophils Percent Auto 0.4 % (0-2); Eosinophils Absolute Auto 0.2 X10*3/uL (0.0-0.4); Eosinophils Percent Auto 1.9 % (0-4); Hematocrit 31.3 % (37-47); Hemoglobin 10.2 g/dl (12.0-16.0); Imm Gran Abs Auto 0.04 X10*3/uL (0.00-0.03); Imm Gran Pct Auto 0.4 % (0.0-0.4); Lymphocytes Absolute Auto 2.2 X10*3/uL (1.2-4.9); Lymphocytes Percent Auto 23.3 % (20-40); Mean Corpuscular HGB Conc 32.6 g/dl (31.0-35.0); Mean Corpuscular Hemoglobin 29.7 pg (27.0-33.0); Mean Platelet Volume 11.5 fL (9.4-12.3); Monocytes Absolute Auto 0.6 X10*3/uL (0.1-1.2); Monocytes Percent Auto 6.4 % (2-11); Neutrophils Absolute Auto 6.5 X10*3/uL (2.0-8.3); Neutrophils Percent Auto 67.6 % (45-73); Platelet Count 164 X10*3/uL (160-400); Red Blood Count 3.44 X10*6/uL (4.20-5.50); Red Cell Distribution Width 12.5 % (11.0-16.0); White Blood Count 9.6 X10*3/uL (4.8-10.8)
[2020-12-02 07:16] LABS: Anion Gap 9 (12-20); Blood Urea Nitrogen 13 mg/dL (9-16); Calcium 8.3 mg/dL (8.4-10.2); Carbon Dioxide 28 mmol/L (22-29); Chloride 103 mmol/L (96-108); Creatinine Clr Calc Pharmacy 90.7; Estimated Glomerular Filt Rate > 60; Glucose Fasting 102 mg/dL (60-99); Potassium 4.2 mmol/L (3.3-5.1); Sodium 136 mmol/L (135-145)
[2020-12-02 07:17] VITALS: BP 115/66; PULSE 74; RESP 17; TEMP 36; O2SAT 96
--- NOTE | 2020-12-02 07:41 | PM.DS ---
DS: Providers Provider Date of Service: 12/02/20 Date of admission: 11/30/20 06:50 Primary care physician: Amrita Trammell MD Consults: 11/30/20 11:08 Consult to Hospitalist Routine Consulting Provider: Hospitalist Reason For Exam: post op medical management DS: Diagnosis Discharge Diagnosis (1) Hypertension: Status: Acute (2) Leukocytosis: Status: Acute (3) Status post total knee replacement, right: Status: Acute Problem details: Ms. Muñoz is a 50 yo female who presented to the office with ongoing right knee pain. She was found to have OA of the right knee and had failed all conservative treatment. She continued to have difficulty with ambulation and daily activities; therefore she consented to move forward with Right total knee arthroplasty. (4) Primary osteoarthritis of right knee: Status: Acute DS: Medications Discharge Medications Home Medications: Home Medications Medication Instructions Recorded Confirmed amlodipine 10 mg tablet 10 mg PO DAILY 07/02/20 11/26/20 lisinopril 10 mg tablet 10 mg PO BEDTIME 07/02/20 11/26/20 omeprazole 20 mg capsule,delayed 20 mg PO BID 07/02/20 11/26/20 release venlafaxine 75 mg capsule,extended 225 mg PO DAILY 07/02/20 11/26/20 release 24 hr acetaminophen [Tylenol Extra 2,000 mg PO Q4H 11/26/20 11/26/20 Strength] albuterol sulfate [Ventolin HFA] 2 puff INHALATION Q4-6H PRN 11/26/20 11/26/20 multivitamin 1 tab PO DAILY 11/26/20 11/26/20 Previous Rx's Medication Instructions Recorded miscellaneous medical supply #1 ea 11/01/20 walker #1 ea 11/01/20 acetaminophen 650 mg PO Q6H PRN 30 Days #240 tab 12/02/20 docusate sodium 100 mg PO BID 30 Days #60 cap 12/02/20 enoxaparin 40 mg SUBCUT Q24H 28 Days #11.2 ml 12/02/20 oxycodone 5 mg PO Q4H PRN 7 Days #42 tab 12/02/20 DS: Summary Hospital Course Hospital Course: The patient underwent a successful right total knee arthroplasty, was transferred to PACU and then to the floor to recover. During their stay, their vitals were stable, afebrile at 96.8. Labs were unremarkable, H/H 10.2/31.1. POD 1 she was started on Lovenox for DVT ppx, they also received P.T. services twice a day. Prior to discharge, their dressing was changed, incision clean dry and intact, new Aquacel dressing applied and the plan was to be discharged home with VNA services. Time Spent with Patient Time attestation: Total time spent providing and/or coordinating discharge services: Discharge coordination time: Less than 30 minutes Quality: Stroke Does the patient have a stroke diagnosis?: No Physical Exam Vital Signs: Vital Signs: Last Vital Signs Temp 96.8 F 12/02/20 07:17 Pulse 74 12/02/20 07:17 Resp 17 12/02/20 07:17 BP 115/66 12/02/20 07:17 Pulse Ox 96 12/02/20 07:17 Body Mass Index 32.5 Const: General: cooperative, healthy appearing and no acute distress Resp: Effort & Inspection: normal respiratory effort and able to speak in complete sentences Cardio: Rate: regular rate Peripheral pulses: Peripheral pulses 2+ throughout GI: Palpation (GI): Soft to palpation Skin: Lesions: no lesions Rashes: no rashes Extrem: Other: Right knee no ecchymosis, redness, or drainage. Boswell intact. New Aquacell dressing applied. Sensation intact. Patient can plantarflex and dorsiflex. Pedal pulse intact. DS: Data Data Completed and Pending Completed studies during hospitalization [Text1]: Pending at discharge 11/30/20 09:19 Surgical [PTH] Routine Labs on day of discharge: Laboratory Results - last 24 hr 12/02/20 12/02/20 06:14 06:14 WBC 9.6 RBC 3.44 L Hgb 10.2 L Hct 31.3 L MCV 91.0 MCH 29.7 MCHC 32.6 RDW 12.5 Plt Count 164 MPV 11.5 Immature Gran % (Auto) 0.4 Neut % (Auto) 67.6 Lymph % (Auto) 23.3 Johnson % (Auto) 6.4 Eos % (Auto) 1.9 Baso % (Auto) 0.4 Lymph # (Auto) 2.2 Johnson # (Auto) 0.6 Eos # (Auto) 0.2 Baso # (Auto) 0.0 Abs Immat Gran (auto) 0.04 H Absolute Neuts (auto) 6.5 Absolute Nucleated RBC 0.000 Nucleated RBC % (auto) 0.0 Sodium 136 Potassium 4.2 Chloride 103 Carbon Dioxide 28 Anion Gap 9 L BUN 13 Creatinine 0.73 Estim Creat Clear Calc 90.7 Estimated GFR > 60 Fasting Glucose 102 H Calcium 8.3 L Discharge Plan Discharge Patient Disposition: Home Health Service Discharge Diagnosis: s/p RTKA Referrals: Niall JORDAN [Outside] - 1 Day (discharged home with new referral to the [facility] for nursing for reinforcement teaching for sc lovenox, and in aaddition home physical thearpy to start day after discharge 12/03/20 follow up with pcp dr araceli cordero at [facility] ) Anisa Osullivan PA-C [Physician Television Technician] - 1 Week (12/16/20 at 1:15pm) Discharge Medications: New acetaminophen 325 mg Tablet 650 mg PO Q6H PRN (Reason: Pain, Mild (Pain Scale 1-3)) 30 Days Qty: 240 RF: 0 enoxaparin 40 mg/0.4 mL Syringe 40 mg subcut Q24H 28 Days Qty: 11.2 RF: 0 docusate sodium 100 mg Capsule 100 mg PO BID 30 Days Qty: 60 RF: 0 oxycodone 5 mg Tablet 5 mg PO Q4H PRN (Reason: Pain, Moderate (Pain Scale 4-6) 7 Days Qty: 42 RF: 0 Continued multivitamin Tablet 1 tab PO DAILY RF: 0 acetaminophen [Tylenol Extra Strength] 500 mg Tablet 2,000 mg PO Q4H RF: 0 albuterol sulfate [Ventolin HFA] 90 mcg/actuation Hfa Aerosol Inhaler 2 puff INHALATION Q4-6H PRN (Reason: Shortness Of Breath) RF: 0 amlodipine 10 mg tablet 10 mg PO DAILY RF: 0 venlafaxine 75 mg capsule,extended release 24hr 225 mg PO DAILY RF: 0 lisinopril 10 mg tablet 10 mg PO BEDTIME RF: 0 omeprazole 20 mg capsule,delayed release(DR/EC) 20 mg PO BID RF: 0 (DME) miscellaneous medical supply Misc See Rx Instructions miscellaneous .MEDSUPPLY Qty: 1 RF: 0 (DME) walker Misc See Rx Instructions .MEDSUPPLY Qty: 1 RF: 0 Discharge Orders: Discharge Order (Routine); Ordered 12/02/20 Ordered By: An Arreaga Diet: advance to usual diet Activity on Discharge: Use cane or walker Stand Alone Forms: Patient Portal Discharge page Care Plan Goals: restore fxn of rt knee Health Concerns: none Plan of Treatment: Physical Therapy for ROM 0-120, quad strength, gait training. Use walker for ambulation Limit stair climbing, No shower, No tub bath, No driving Continue anticoagulant Keep Aquacel dressing clean, dry and intact. Follow up with orthopedics in 2 weeks Assessment: stable and ready for d/c home with services
[2020-12-02 07:49] VITALS: BP 115/66; PULSE 74; O2SAT 96
--- NOTE | 2020-12-02 07:56 | W.MHC.F2F ---
Service Date Service Date: 12/02/20 Encounter Date of encounter: 12/02/20 Encounter: Pt. is considered homebound due to recent surgery. Unable to drive, poor balance, poor gait mechanics. Reasons for Services Homebound: Leaving the home is medically contraindicated at this time without the asist of a device and/or another person due th the listed conditions above and below. Reason homebound: unsteady gait / fall risk, leg weakness, pain with ambulation, pain with transfers, poor balance / fall risk and unable to drive Homebound supporting statement: Pt. is considered homebound due to recent surgery. Unable to drive, poor balance, poor gait mechanics. Certification: Based on the above findings, I certify that this patient is confined to the home and needs intermittent group home care, physical therapy and/or speech therapy, or continues to need occupational therapy. The patient is under my care, and I have initiated the establishment of the plan of care. The patient will be followed by a physician who will periodically review the plan of care.
[2020-12-02] MEDS: 0.9 % Sodium Chloride Flush 3 ML SYRINGE IVFLUSH (08:26)
[2020-12-02] MEDS: Venlafaxine HCl ER 75 MG CAP.ER.24H 225 MG PO (08:45)
[2020-12-02] MEDS: Omeprazole 20 MG CAPSULE.DR PO (08:45)
[2020-12-02] MEDS: Docusate Sodium 100 MG CAPSULE PO (08:45)
[2020-12-02] MEDS: Multivitamin TABLET 1 TAB PO (08:45)
[2020-12-02] MEDS: oxyCODONE HCl ER 10 MG TAB.ER.12H PO (08:45)
--- NOTE | 2020-12-02 09:05 | MHC.CM.PN ---
nurse emergency care attendant note electronic medical record reviewed along with case discussed with staff nurse , met with patient , she is aware that she wuiill be discharged home today staff nurse to provide teaching for sc lovenox, qd discharge plan home with new referral to the [facility] for nursing for home sc lovenox reinforcement teaching and home physical theapry to start on 12/03/20 transportation family pcp patient instructed to call physician for post hospitla dischargw orthopedic surgical patient to to follow up as indiocated on the discharge instructions all paperwor they do not believe that sc lovenox needs prio authorization they will run the script and then call patient .rk completed checked with [facility] [phone]
[2020-12-02] MEDS: Enoxaparin Sodium 40 MG/0.4 ML SYRINGE SUBCUT (10:08)
--- NOTE | 2020-12-02 13:32 | P.PNIM_ITS ---
Subjective Subjective Date of Service: 12/02/20 Interval History: Feels better, knee pain is well controlled, denies nausea, no vomiting, no lightheadedness or dizziness tolerating diet ROS General no headache, no dizziness no fever chills. CVS no chest pain, no palpitation. Respiratory no cough no sob. Gastrointestinal no nausea no vomiting, no abdominal pain Physical Exam Vital Signs: Vital Signs: Last Vital Signs Temp 96.8 F 12/02/20 07:17 Pulse 74 12/02/20 07:49 Resp 17 12/02/20 07:17 BP 115/66 12/02/20 07:49 Pulse Ox 96 12/02/20 07:49 Body Mass Index 32.5 General patient resting comfortably in no acute distress. Neck is supple no JVD. CVS regular rate rhythm, Respiratory lungs clear to auscultation, no respiratory distress, no wheeze, no rhonchi. Gastrointestinal abdomen soft, nontender, bowel sounds audible, no guarding , no rigidity. Extremities no edema.Rt Knee dressing in place Neuro nonfocal , speech clear. Skin no rash Objective Data Labs CBC & Chem 7: 12/02/20 06:14 12/02/20 06:14 Assessment and Plan (1) Leukocytosis: Status: Acute (2) Hypertension: Status: Acute (3) Status post total knee replacement, right: Status: Acute (4) Primary osteoarthritis of right knee: Status: Acute Assessment and Plan: 50-year-old woman status post right total knee arthroplasty. Right total knee arthroplasty pod #2. Good pain control, hematocrit dropped further, patient remains asymptomatic, no palpitation, no shortness of breath recommend to take iron supplement 1 tablet daily Recommend high-fiber diet to avoid constipation, encourage incentive spirometer, being discharged home with PT service Leukocytosis Resolved was likely reactive, no acute infection found, no cough, no sputum production, no urinary symptoms Hypertension. Soft blood pressure this a.m. continue lisinopril, resume amlodip ine from tomorrow if blood pressure improves. GERD continue PPI Mental health Behavioral issues,continue home medications DVT prophylaxis as per surgical team Full code
== END 2020-12-02 11:12 | disposition home or self-care (01) ==
LOC: HO.SSS 06:50 → HO.S3 12-01 14:02
PROVIDERS: Nurse Practitioner; Physician Assistant; PCP Pediatrics; Visit Provider Orthopaedic Surgery
PROC: (CPT 27447; principal; 2020-11-30 07:30)
DX: M17.11 Unilateral primary osteoarthritis, right knee (principal); I10 Essential (primary) hypertension; K21.9 Gastro-esophageal reflux disease without esophagitis; J45.909 Unspecified asthma, uncomplicated; Z79.899 Other long term (current) drug therapy; Z88.8 Allergy status to other drugs, medicaments and biological substances; Z87.891 Personal history of nicotine dependence; Z20.822 Contact with and (suspected) exposure to COVID-19
CPT/HCPCS: 27447; 36415; 73560; 80048; 80076; 85025; 86850; 86900; 86901; 87635; 87640; 87641; 88305; 88311; 93005; 97110; 97116; 97162; C1776; J0690; J1100; J1170; J1650; J2250; J2370; J2405; J2550

== ENCOUNTER → 2020-12-16 12:52 | Outpatient (BNVA) | payer MEDICARE, MEDICAID, SELFPAY | PROVIDERS: Visit Provider Physician Assistant | DX: Z96.651 Presence of right artificial knee joint (principal); M17.11 Unilateral primary osteoarthritis, right knee; I10 Essential (primary) hypertension; J45.909 Unspecified asthma, uncomplicated; F17.210 Nicotine dependence, cigarettes, uncomplicated; Z88.8 Allergy status to other drugs, medicaments and biological substances | CPT/HCPCS: 99212 ==

== ENCOUNTER → 2021-01-13 13:25 | Outpatient (BNVA) | payer MEDICARE, MEDICAID, SELFPAY | PROVIDERS: PCP Internal Medicine Sports Medicine; Visit Provider Orthopaedic Surgery | DX: Z47.1 Aftercare following joint replacement surgery (principal); Z96.651 Presence of right artificial knee joint | CPT/HCPCS: 99212 ==

== ENCOUNTER 2021-03-10 12:28 | Outpatient (REF) | payer MEDICARE, MEDICAID, SELFPAY ==
--- NOTE | ~2021-03-10 | XR_ITS ---
EXAMINATION: XR BOTH KNEES AP STANDING XR RIGHT KNEE, 2 VIEWS CLINICAL INFORMATION: Pain. COMPARISON: Right knee radiographs dated 11/30/2020. TECHNIQUE: Standing AP view of both knees and lateral and sunrise views of the right knee. FINDINGS: Right Knee: Total right knee arthroplasty. Orthopedic screw within the tibial tuberosity. No acute hardware or osseous fracture. No perihardware lucency to suggest loosening or infection. No osseous erosion. No significant joint effusion. No abnormal soft tissue calcification. Left Knee: Orthopedic screws within the proximal tibia. No joint space narrowing or marginal osteophytes. No osseous erosion. No abnormal soft tissue calcification. No fracture or dislocation. XR/XR knee standing BI IMPRESSION: RIGHT KNEE: Total knee arthroplasty without evidence of complication. LEFT KNEE: Tibial tuberosity orthopedic screws without evidence of hardware complication.
--- NOTE | ~2021-03-10 | XR_ITS ---
EXAMINATION: XR BOTH KNEES AP STANDING XR RIGHT KNEE, 2 VIEWS CLINICAL INFORMATION: Pain. COMPARISON: Right knee radiographs dated 11/30/2020. TECHNIQUE: Standing AP view of both knees and lateral and sunrise views of the right knee. FINDINGS: Right Knee: Total right knee arthroplasty. Orthopedic screw within the tibial tuberosity. No acute hardware or osseous fracture. No perihardware lucency to suggest loosening or infection. No osseous erosion. No significant joint effusion. No abnormal soft tissue calcification. Left Knee: Orthopedic screws within the proximal tibia. No joint space narrowing or marginal osteophytes. No osseous erosion. No abnormal soft tissue calcification. No fracture or dislocation. XR/XR knee RT 2V IMPRESSION: RIGHT KNEE: Total knee arthroplasty without evidence of complication. LEFT KNEE: Tibial tuberosity orthopedic screws without evidence of hardware complication.
== END 2021-03-10 12:29 | disposition home or self-care (01) ==
LOC: HO.HOSX 12:28
PROVIDERS: Visit Provider Orthopaedic Surgery
DX: Z47.1 Aftercare following joint replacement surgery (principal); Z96.651 Presence of right artificial knee joint
CPT/HCPCS: 73560; 73565; 99212

== ENCOUNTER 2021-10-13 11:53 | Outpatient (REF) | payer MEDICARE, MEDICAID, SELFPAY ==
--- NOTE | ~2021-10-13 | XR_ITS ---
EXAMINATION: XR SHOULDER, LEFT CLINICAL INFORMATION: Left shoulder pain COMPARISON: None TECHNIQUE: AP external rotation, Grashey, scapular Y, and axillary views of the left shoulder. FINDINGS: The bones and soft tissues are normal. No fracture. Glenohumeral and acromioclavicular alignment is anatomic with normal joint space. No abnormal soft tissue calcifications. XR/XR shoulder LT min 2V IMPRESSION: Normal left shoulder.
== END 2021-10-13 11:54 | disposition home or self-care (01) ==
LOC: HO.HOSX 11:53
PROVIDERS: Visit Provider Orthopaedic Surgery
DX: M75.42 Impingement syndrome of left shoulder (principal)
CPT/HCPCS: 20610; 73030; 99212; J1100

== ENCOUNTER 2021-12-22 12:20 | Outpatient (REF) | payer MEDICARE, MEDICAID, SELFPAY ==
--- NOTE | ~2021-12-22 | XR_ITS ---
EXAMINATION: XR KNEES, STANDING AP XR KNEE, RIGHT CLINICAL INFORMATION: Knee pain COMPARISON: Standing AP knees and right knee radiographs 03/10/2021. TECHNIQUE: Standing AP knees are obtained along with lateral and axial patella views right knee. FINDINGS: Right: Prior total knee arthroplasty and screw proximal tibia. Hardware intact. No destructive process or osteolysis or periostitis. No fracture or dislocation. Probable small suprapatellar effusion. Hardware normal alignment. Left: 2 screws proximal tibia intact. No fracture, dislocation, destructive process, or osteolysis. No joint narrowing or erosive change. XR/XR knee standing BI IMPRESSION: Right: -Status post total knee arthroplasty. Hardware intact. Normal alignment. -No fracture, dislocation, or osteolysis. -Probable small suprapatellar effusion. Left: - Screw hardware intact. No osteolysis. -No joint narrowing or erosive change. No fracture.
--- NOTE | ~2021-12-22 | XR_ITS ---
EXAMINATION: XR KNEES, STANDING AP XR KNEE, RIGHT CLINICAL INFORMATION: Knee pain COMPARISON: Standing AP knees and right knee radiographs 03/10/2021. TECHNIQUE: Standing AP knees are obtained along with lateral and axial patella views right knee. FINDINGS: Right: Prior total knee arthroplasty and screw proximal tibia. Hardware intact. No destructive process or osteolysis or periostitis. No fracture or dislocation. Probable small suprapatellar effusion. Hardware normal alignment. Left: 2 screws proximal tibia intact. No fracture, dislocation, destructive process, or osteolysis. No joint narrowing or erosive change. XR/XR knee RT 2V IMPRESSION: Right: -Status post total knee arthroplasty. Hardware intact. Normal alignment. -No fracture, dislocation, or osteolysis. -Probable small suprapatellar effusion. Left: - Screw hardware intact. No osteolysis. -No joint narrowing or erosive change. No fracture.
== END 2021-12-22 12:21 | disposition home or self-care (01) ==
LOC: HO.HOSX 12:20
PROVIDERS: Visit Provider Orthopaedic Surgery
DX: M25.561 Pain in right knee (principal); M75.42 Impingement syndrome of left shoulder; Z96.651 Presence of right artificial knee joint
CPT/HCPCS: 73560; 73565; 99212